=== PATIENT | male | born 1935 | race Caucasian/White ===

== ENCOUNTER 2016-11-13 16:25 | Emergency (ER) | payer MEDICARE, OTHER ==
[2016-11-13 16:25] VITALS: BMI 29.7
[2016-11-13 16:51] VITALS: PULSE 73; RESP 18; TEMP 98.4; O2SAT 100
--- NOTE | 2016-11-13 17:10 | ED PDOC ---
Upper Extremity Pain/Injury Time Seen by Provider: 11/13/16 16:53 Chief Complaint (Nursing): Upper Extremity Problem/Injury Chief Complaint (Provider): right shoulder pain History Per: Patient History/Exam Limitations: no limitations Onset/Duration Of Symptoms: Days (x2 weeks) Current Symptoms Are (Timing): Still Present Severity: Mild Additional Complaint(s): Patient is an 81 year old male presenting to the ED complaining of right shoulder pain x2 weeks. Patienr reports pain radiates to right hand. Denies trauma or tingling. PMD: none Past Medical History Reviewed: Historical Data, Nursing Documentation, Vital Signs Vital Signs: Last Vital Signs Temp 98.4 F 11/13/16 16:47 Pulse 73 11/13/16 16:47 Resp 18 11/13/16 16:47 BP 157/82 H 11/13/16 16:47 Pulse Ox 100 11/13/16 16:47 - Medical History PMH: Arthritis (knees), HTN Denies: Chronic Kidney Disease - Family History Family History: States: No Known Family Hx - Home Medications Home Medications: Ambulatory Orders Medication Instructions Recorded Lisinopril/Hydrochlorothiazide 25 tab PO DAILY 09/11/13 [Lisinopril/Hctz 12.5 mg-10 mg] Finasteride [Proscar] 5 mg PO DAILY 12/01/14 Acetaminophen with Codeine 1 tab PO Q6H PRN #15 tab 11/13/16 [Tylenol with Codeine No. 3 300 mg-30 mg] - Allergies Allergies/Adverse Reactions: Allergies Allergy/AdvReac Type Severity Reaction Status Date / Time No Known Allergies Allergy Verified 09/11/13 11:01 Review of Systems ROS Statement: Except As Marked, All Systems Reviewed And Found Negative Musculoskeletal: Positive for: Shoulder Pain (rt) Neurological: Negative for: Numbness Physical Exam - Reviewed Nursing Documentation Reviewed: Yes Vital Signs Reviewed: Yes - Physical Exam Appears: Positive for: Well, Non-toxic, No Acute Distress Head Exam: Positive for: ATRAUMATIC, NORMAL INSPECTION, NORMOCEPHALIC Skin: Positive for: Normal Color, Warm, DRY Eye Exam: Positive for: Normal appearance Neck: Positive for: Normal, Painless ROM Cardiovascular/Chest: Positive for: Regular Rate, Rhythm Respiratory: Positive for: Normal Breath Sounds. Negative for: Accessory Muscle Use, Respiratory Distress Pulses-Radial (L): 2+ Pulses-Radial (R): 2+ Extremity: Negative for: Normal ROM (Full passive ROM, pain with active shoulder extension), Deformity, Swelling Neurologic/Psych: Positive for: Alert, Oriented - ECG O2 Sat by Pulse Oximetry: 100 Medical Decision Making Medical Decision Making: Time: 16:55 Impression: 81 y/o male w/ r shoulder pain Plan: EKG XR Right Shoulder Scribe Attestation: Documented by Topher Archer acting as a scribe for Mami Salty. Provider Attestation: All medical record entries made by the Scribe were at my direction and personally dictated by me. I have reviewed the chart and agree that the record accurately reflects my personal performance of the history, physical exam, medical decision making, and the department course for this patient. I have also personally directed, reviewed, and agree with the discharge instructions and disposition. Disposition - Clinical Impression Clinical Impression: Calcifying tendinitis of shoulder - Patient ED Disposition Is Patient to be Admitted: No Counseled Patient/Family Regarding: Diagnosis, Need For Followup, Rx Given - Disposition Referrals: [facility] [Outside] Disposition: Routine/Home Disposition Time: 18:06 Condition: GOOD Prescriptions: Acetaminophen with Codeine [Tylenol with Codeine No. 3 300 mg-30 mg] 1 tab PO Q6H PRN #15 tab PRN Reason: Pain, Severe (8-10) Instructions: Calcific Tendinitis (ED) Print Language: TRINIDADIAN
[2016-11-13] MEDS ORDERED: Acetaminophen-Codeine 300/30 mg Tab ONE (18:03)
[2016-11-13] MEDS ORDERED: Acetaminophen-Codeine 300/30 mg Tab PO STA (18:07)
[2016-11-13 18:47] VITALS: BP 143/70
--- NOTE | 2016-11-14 08:01 | RAD ---
PROCEDURE: Radiographs of the Right Shoulder HISTORY: pain x 2 weeks, worse with movement COMPARISON: No prior. FINDINGS: BONES: Normal. No fracture. JOINTS: Preserved glenohumeral relationship, acromioclavicular degenerative change: Mild. SOFT TISSUES: Normal. OTHER FINDINGS: None. IMPRESSION: No acute findings related to/accounting for the clinical presentation.
--- NOTE | 2016-11-15 02:18 | CARD ---
APPROVED REPORT EKG Measurement Heart [id number] <Conclusion> Sinus bradycardia with 1st degree AV block Right bundle branch block Left anterior fascicular block Bifascicular block Voltage criteria for left ventricular hypertrophy Abnormal ECG
== END 2016-11-13 18:30 | disposition home or self-care (01) ==
LOC: H.ER 16:25
DX: M75.31 Calcific tendinitis of right shoulder (principal); I10 Essential (primary) hypertension; I45.10 Unspecified right bundle-branch block; R00.1 Bradycardia, unspecified

== ENCOUNTER 2017-11-09 18:45 | Emergency (ER) | payer MEDICARE, OTHER ==
[2017-11-09 18:46] VITALS: BMI 29.7
[2017-11-09 18:52] VITALS: TEMP 98.7; O2SAT 99
--- NOTE | 2017-11-09 21:25 | ED PDOC ---
Upper Extremity Pain/Injury Time Seen by Provider: 11/09/17 19:35 Chief Complaint (Nursing): Finger,Hand,&Wrist Chief Complaint (Provider): Left Hand Pain History Per: Patient History/Exam Limitations: no limitations Onset/Duration Of Symptoms: Hrs (x9) Current Symptoms Are (Timing): Still Present Additional Complaint(s): 82 y/o male with no significant pmhx, who presents to the ED for evaluation of left hand pain and swelling x9 hours. Patient states at 12 noon he tripped and fell and landed on his outstretched left hand. Currently complaining of pain at the base of his left thumb. PMD: Anne-Marie Doll Past Medical History Reviewed: Historical Data, Nursing Documentation, Vital Signs Vital Signs: Last Vital Signs Temp 98.7 F 11/09/17 18:50 Pulse 89 11/09/17 18:50 Resp 16 11/09/17 18:50 BP 149/74 11/09/17 18:50 Pulse Ox 99 11/09/17 18:50 - Medical History PMH: Arthritis (knees), HTN Denies: Chronic Kidney Disease - Surgical History Surgical History: No Surg Hx - Family History Family History: States: Unknown Family Hx - Home Medications Home Medications: Ambulatory Orders Medication Instructions Recorded Lisinopril/Hydrochlorothiazide 25 tab PO DAILY 09/11/13 [Lisinopril/Hctz 12.5 mg-10 mg] Finasteride [Proscar] 5 mg PO DAILY 12/01/14 Acetaminophen with Codeine 1 tab PO Q6H PRN #15 tab 11/13/16 [Tylenol with Codeine No. 3 300 mg-30 mg] traMADol [Ultram] 50 mg PO Q6H PRN #15 tab 11/09/17 - Allergies Allergies/Adverse Reactions: Allergies Allergy/AdvReac Type Severity Reaction Status Date / Time No Known Allergies Allergy Verified 11/09/17 18:50 Review of Systems ROS Statement: Except As Marked, All Systems Reviewed And Found Negative Musculoskeletal: Positive for: Hand Pain (left) Physical Exam - Reviewed Nursing Documentation Reviewed: Yes Vital Signs Reviewed: Yes - Physical Exam Appears: Positive for: Non-toxic, No Acute Distress Head Exam: Positive for: ATRAUMATIC, NORMAL INSPECTION, NORMOCEPHALIC Skin: Positive for: Normal Color, Warm, Dry Eye Exam: Positive for: Normal appearance Neck: Positive for: Normal, Painless ROM Respiratory: Negative for: Respiratory Distress Extremity: Positive for: Tenderness (left scaphoid tenderness with edema), Swelling Neurologic/Psych: Positive for: Alert, Oriented - ECG O2 Sat by Pulse Oximetry: 99 (RA) Pulse Ox Interpretation: Normal Medical Decision Making Medical Decision Makin:04 Plan: --Ultram 50mg PO --Left hand X-Ray Thumb spica placed. Scribe Attestation: Documented by Seb Castillo, acting as a scribe for Mami Pond PA-C. Provider Scribe Attestation: All medical record entries made by the Scribe were at my direction and personally dictated by me. I have reviewed the chart and agree that the record accurately reflects my personal performance of the history, physical exam, medical decision making, and the department course for this patient. I have also personally directed, reviewed, and agree with the discharge instructions and disposition. Disposition - Clinical Impression Clinical Impression: Scaphoid fracture - Patient ED Disposition Is Patient to be Admitted: No Counseled Patient/Family Regarding: Diagnosis, Need For Followup - Disposition Disposition: Routine/Home Disposition Time: 21:25 Condition: STABLE Additional Instructions: Ice, elevation. Please get repeat x-ray in 1 week. Prescriptions: traMADol [Ultram] 50 mg PO Q6H PRN #15 tab PRN Reason: Pain Instructions: Wrist Fracture (DC) Forms: [employer]uma-[employer] (Icelandic) Print Language: [place]
[2017-11-09 21:49] VITALS: BP 137/78; PULSE 75; RESP 17
--- NOTE | 2017-11-10 08:38 | RAD ---
PROCEDURE: Left Hand Radiographs. HISTORY: left hand pain and swelling after FOOSH COMPARISON: None. FINDINGS: BONES: No acute fracture or destructive bony lesion identified. A metallic radiodensity is approximate 2 mm size at the dorsal medial soft tissues relative to the middle phalanx left small finger. Soft tissues are otherwise unremarkable appearing. JOINTS: No subluxation or dislocation appreciated. SOFT TISSUES: Normal. OTHER FINDINGS: None. IMPRESSION: No acute fracture dislocation left hand. Retained radiodense foreign body is seen at the medial mid small finger soft tissues as discussed above.
== END 2017-11-09 21:49 | disposition home or self-care (01) ==
LOC: H.ER 18:45
DX: S62.001A Unspecified fracture of navicular [scaphoid] bone of right wrist, initial encounter for closed fracture (principal); W19.XXXA Unspecified fall, initial encounter; Y92.89 Other specified places as the place of occurrence of the external cause; I10 Essential (primary) hypertension